=== PATIENT | male | born 1975 | race Caucasian/White ===

== ENCOUNTER 2018-01-11 10:53 | Emergency (ER) | payer MEDICAID, MEDICARE ==
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
[2018-01-11] MEDS: DIAZEPAM 5 MG TABLET PO ONE (12:15)
[2018-01-11] MEDS: DEXAMETHASONE SOD PHOSPHATE 10MG/ML VIAL PO ONE (12:15)
== END 2018-01-11 13:07 | disposition home or self-care (01) ==
LOC: ER 10:53
DX: M54.41 Lumbago with sciatica, right side (principal); F17.210 Nicotine dependence, cigarettes, uncomplicated
CPT/HCPCS: 99283